=== PATIENT | female | born 1970 | race Caucasian/White ===

== ENCOUNTER 2016-08-15 21:56 | Emergency (ER) | payer OTHER ==
--- NOTE | 2016-08-15 21:58 | EDPHY ---
H & P HPI/ROS: HPI CHIEF COMPLAINT: Palpitations HISTORY OF PRESENT ILLNESS: This patient very pleasant 46-year-old female significant past medical history for hypertension takes hydrochlorothiazide, no other medications no other medical history, denies any history of cardiac disease denies stroke or heart attack she presents emergency room with palpitations she states she has had a remote history when she was much younger palpitations was diagnosed with a sinus arrhythmia however she states she has not had palpitations long time around 2 o'clock today she noticed palpitations she describes as a regular beating along and then kind of a pause and then a very heartbeat. And then goes back to regular rhythm. She has not had any lightheadedness with this she denies chest pain or shortness of breath denies nausea, numbness or tingling or focal weakness anywhere. No headache. Past Medical History: Hypertension Past Surgical History: Jaw surgery Social History: Denies daily use of drugs alcohol tobacco products Family History: No family history of sudden cardiac or significant cardiac arrhythmia ROS REVIEW OF SYSTEMS: A comprehensive 10 point review of systems is otherwise negative aside from elements mentioned in the history of present illness. Exam Constitutional triage nursing summary reviewed, vital signs reviewed, awake/ alert. (Sinus tach, HTN) Eyes normal conjunctivae and sclera, EOMI, PERRLA. HENT normal inspection, atraumatic, moist mucus membranes, no epistaxis, neck supple/ no meningismus, no raccoon eyes. Respiratory clear to auscultation bilaterally, normal breath sounds, no respiratory distress, no wheezing. Cardiovascular rate normal, regular rhythm, no murmur, no edema, distal pulses normal. Gastrointestinal soft, non-tender, no rebound, no guarding, normal bowel sounds, no distension, no pulsatile mass. Genitourinary no CVA tenderness. Musculoskeletal no midline vertebral tenderness, full range of motion, no calf swelling, no tenderness of extremities, no meningismus, good pulses, neurovascularly intact. Skin pink, warm, & dry, no rash, skin atraumatic. Neurologic awake, alert and oriented x 3, AAOx3, moves all 4 extremities equally, motor intact, sensory intact, CN II-XII intact, normal cerebellar, normal vision, normal speech. Psychiatric normal mood/affect. Heme/Lymph/Immune no lymphadenopathy. Differential Diagnosis: Includes but is not limited to in a particular order cardiac arrhythmia, sinus arrhythmia, PVCs, electrolyte disturbance, doubt ACS, doubt pulmonary embolism. Medical Decision Making: Patient tells me that she has had palpitations since 2 o'clock this afternoon patient will be hooked up to a residential monitor patient had an IV established obtain blood work, patient received a fluid bolus, EKG will check a troponin and D-dimer. Patient denies chest pain or shortness of breath. No history of cardiac disease pulmonary embolism or stroke. Only cardiac risk factor is hypertension. Re-evaluation: EKG interpretation by me on record in [employer] system. Impression time of EKG 228, this is sinus tachycardia rate of 103 I do not appreciate acute ischemia. No signs of cardiac arrhythmia on this EKG. Intervals are appropriate. No signs of WPW or Brugada. 2238: Patient resting comfortably without chest pain or shortness of breath. Blood pressure currently 155/82 HR currently: 94 ED x-ray chest two view: Negative for acute cardiopulmonary disease. Image interpreted myself. 2256: Review patient's blood work negative D-dimer, electrolytes appropriate slightly low sodium 3.3. Patient's chest x-ray unremarkable EKG unremarkable. No evidence of arrhythmia on the residential monitor for the hour that she has been here. She has no chest pain or shortness of breath she is not complaining of palpitations this time denies dizziness or lightheadedness. Given that her blood work is unremarkable EKG unremarkable I do recommend that she follows up with Cardiology for palpitations outpatient workup with a Holter monitor. No evidence of ischemia on her EKG. Repeat EKG: Time of EK, this is sinus rhythm rate of 85 again there is no acute ischemic changes seen on this EKG specifically no ST elevation, ST depression, T-wave abnormalities. No signs of cardiac arrhythmia no brugada no WPW unremarkable EKG. 2258: Discussed results with patient 1 of her blood work and EKGs. Everything is reassuring. Blood pressure greatly improved and heart rate improved. Heart rate 85. Blood pressure 150 systolic. Again no chest pain no shortness of breath she understands follow-up with Cardiology outpatient. Obviously return emergency room if there is any worsening symptoms including syncope develops chest pain or shortness of breath. We have not capture any signs of cardiac arrhythmia here on the monitor. Source: Patient - Medical/Surgical History Hx Asthma: Yes Hx Chronic Respiratory Disease: No Hx Diabetes: No Hx Cardiac Disease: No Hx Renal Disease: No Hx Cirrhosis: No Hx Alcoholism: No Hx HIV/AIDS: No Hx Splenectomy or Spleen Trauma: No Other PMH: htn - Social History Smoking Status: Never smoked Constitutional: Initial Vital Signs Temperature (C) 36.7 C 08/15/16 22:06 Heart Rate 112 H 08/15/16 22:06 Respiratory Rate 18 08/15/16 22:06 Blood Pressure 192/114 H 08/15/16 22:06 O2 Sat (%) 94 08/15/16 22:06 O2 Delivery Mode Room Air Allergies/Adverse Reactions: No Known Allergies Allergy (Unverified 08/15/16 22:05) Home Medications: Medication Instructions Recorded Hydrochlorothiazide 12.5 MG (RX) 08/05/13 Medical Decision Making - Data Points Laboratory Results: Laboratory Results 08/15/16 22:25 08/15/16 22:25 08/15/16 08/15/16 08/15/16 22:25 22:25 22:25 WBC RBC Hgb Hct MCV MCH MCHC RDW Plt Count MPV Neut % (Auto) Lymph % (Auto) [place] % (Auto) Eos % (Auto) Baso % (Auto) Nucleat RBC Rel Count Absolute Neuts (auto) Absolute Lymphs (auto) Absolute Monos (auto) Absolute Eos (auto) Absolute Basos (auto) Absolute Nucleated RBC Immature Gran % Immature Gran # PT 13.2 SEC SEC (12.0-15.0) INR 1.03 (0.83-1.16) APTT 28.8 SEC SEC (23.0-38.0) D-Dimer < 0.27 ug/mLFEU ug/mLFEU (0.00-0.50) Sodium 137 mEq/L mEq/L (134-144) Potassium 3.3 mEq/L L mEq/L (3.5-5.2) Chloride 94 mEq/L L mEq/L (97-110) Carbon Dioxide 24 mEq/l mEq/l (22-31) Anion Gap 19 mEq/L H mEq/L (8-16) BUN 7 mg/dL mg/dL (7-23) Creatinine 0.5 mg/dL L mg/dL (0.6-1.0) Estimated GFR > 60 Glucose 97 mg/dL mg/dL (70-100) Calcium 9.8 mg/dL mg/dL (8.5-10.4) Magnesium 2.1 mg/dL mg/dL (1.6-2.3) Total Bilirubin 0.9 mg/dL mg/dL (0.1-1.4) Conjugated Bilirubin 0.3 mg/dL mg/dL (0.0-0.5) Unconjugated Bilirubin 0.6 mg/dL mg/dL (0.0-1.1) AST 23 IU/L IU/L (14-46) ALT 27 IU/L IU/L (9-52) Alkaline Phosphatase 115 IU/L IU/L (38-126) Troponin I Pending NT-Pro-B Natriuret Pep Pending Total Protein 8.5 g/dL H g/dL (6.3-8.2) Albumin 4.4 g/dL g/dL (3.5-5.0) Beta HCG, Qual NEGATIVE 08/15/16 22:25 WBC 15.80 10^3/uL H 10^3/uL (3.80-9.50) RBC 5.27 10^6/uL 10^6/uL (4.18-5.33) Hgb 15.7 g/dL g/dL (12.6-16.3) Hct 43.3 % % (38.0-47.0) MCV 82.2 fL fL (81.5-99.8) MCH 29.8 pg pg (27.9-34.1) MCHC 36.3 g/dL g/dL (32.4-36.7) RDW 12.6 % % (11.5-15.2) Plt Count 417 10^3/uL H 10^3/uL (150-400) MPV 9.6 fL fL (8.7-11.7) Neut % (Auto) 63.9 % % (39.3-74.2) Lymph % (Auto) 28.7 % % (15.0-45.0) [place] % (Auto) 5.9 % % (4.5-13.0) Eos % (Auto) 0.9 % % (0.6-7.6) Baso % (Auto) 0.3 % % (0.3-1.7) Nucleat RBC Rel Count 0.0 % % (0.0-0.2) Absolute Neuts (auto) 10.10 10^3/uL H 10^3/uL (1.70-6.50) Absolute Lymphs (auto) 4.54 10^3/uL H 10^3/uL (1.00-3.00) Absolute Monos (auto) 0.93 10^3/uL H 10^3/uL (0.30-0.80) Absolute Eos (auto) 0.14 10^3/uL 10^3/uL (0.03-0.40) Absolute Basos (auto) 0.04 10^3/uL 10^3/uL (0.02-0.10) Absolute Nucleated RBC 0.00 10^3/uL 10^3/uL (0-0.01) Immature Gran % 0.3 % % (0.0-1.1) Immature Gran # 0.05 10^3/uL 10^3/uL (0.00-0.10) PT INR APTT D-Dimer Sodium Potassium Chloride Carbon Dioxide Anion Gap BUN Creatinine Estimated GFR Glucose Calcium Magnesium Total Bilirubin Conjugated Bilirubin Unconjugated Bilirubin AST ALT Alkaline Phosphatase Troponin I NT-Pro-B Natriuret Pep Total Protein Albumin Beta HCG, Qual Medications Given: Discontinued Medications Sodium Chloride (Ns) 1,000 mls @ 0 mls/hr IV ONCE ONE PRN Reason: Wide Open Stop: 08/15/16 22:04 Last Admin: 08/15/16 22:25 Dose: 1,000 mls Departure - Departure Disposition: Home, Routine, Self-Care Clinical Impression: Heart palpitations Condition: Good Instructions: Palpitations (ED) Additional Instructions: 1. Return emergency room if you have any worsening symptoms questions or concerns. This includes severe palpitations, syncope, chest pain. 2. Please follow up with Cardiology outpatient call their for an appointment. Reason for consultation is palpitations. 3. Your Potassium was slightly low. I recommend eating a few bananas over the next two days. Referrals: NONE *PRIMARY CARE P,. [Primary Care Provider] - As per Instructions Marcie Aguilera MD [Medical Doctor] - As per Instructions
[2016-08-15] MEDS ORDERED: NS 1,000 ML IV ONE (22:03)
[2016-08-15 22:09] VITALS: TEMP 98.1
--- NOTE | 2016-08-15 22:10 | CPEKG ---
Heart Rate: 103 RR Interval: 583 P-R Interval: 152 QRSD Interval: 96 QT Interval: 344 QTC Interval: 451 P [place]: 57 QRS [place]: 37 T Wave [place]: 13 EKG Severity - OTHERWISE NORMAL ECG - EKG Impression: SINUS TACHYCARDIA Electronically Signed By: Thiago Brooks 16-Aug-2016 16:30:29
[2016-08-15 22:32] LABS: % IMMATURE GRANULYOCYTES 0.3 % (0.0-1.1); ABSOLUTE IMMATURE GRANULOCYTES 0.05 10^3/uL (0.00-0.10); ADD DIFF? NO; ADD MORPH? NO; ADD SCAN? NO; ATYPICAL LYMPHOCYTE FLAG 0 (0-99); FRAGMENT RBC FLAG 0 (0-99); HEMATOCRIT 43.3 % (38.0-47.0); HEMOGLOBIN 15.7 g/dL (12.6-16.3); LEFT SHIFT FLG 0 (0-99); LIPEMIA HEMOLYSIS FLAG 90 (0-99); MEAN CELL HEMOGLOBIN 29.8 pg (27.9-34.1); MEAN CELL HEMOGLOBIN CONCENTR. 36.3 g/dL (32.4-36.7); MEAN CELL VOLUME 82.2 fL (81.5-99.8); MEAN PLATELET VOLUME 9.6 fL (8.7-11.7); PLATELET CLUMPS FLAG 0 (0-99); PLATELET COUNT 417 10^3/uL (150-400); RED BLOOD CELL COUNT 5.27 10^6/uL (4.18-5.33); RED CELL DISTRIBUTION WIDTH 12.6 % (11.5-15.2)
[2016-08-15 22:44] LABS: APTT 28.8 SEC (23.0-38.0); INR 1.03 (0.83-1.16); PROTIME(PATIENT) 13.2 SEC (12.0-15.0)
[2016-08-15 22:46] LABS: ALANINE AMINOTRANSFERASE 27 IU/L (9-52); ALBUMIN 4.4 g/dL (3.5-5.0); ALKALINE PHOSPHATASE 115 IU/L (38-126); ANION GAP 19 mEq/L (8-16); ASPARTATE AMINOTRANSFERASE 23 IU/L (14-46); BILIRUBIN,TOTAL 0.9 mg/dL (0.1-1.4); BILIRUBIN-CONJUGATED 0.3 mg/dL (0.0-0.5); BILIRUBIN-UNCONJUGATED 0.6 mg/dL (0.0-1.1); CALCIUM 9.8 mg/dL (8.5-10.4); CARBON DIOXIDE 24 mEq/l (22-31); CHLORIDE 94 mEq/L (97-110); CREATININE 0.5 mg/dL (0.6-1.0); GLOMERULAR FILTRATION RATE > 60; GLUCOSE 97 mg/dL (70-100); MAGNESIUM 2.1 mg/dL (1.6-2.3); POTASSIUM 3.3 mEq/L (3.5-5.2); SODIUM 137 mEq/L (134-144); TOTAL PROTEIN 8.5 g/dL (6.3-8.2)
--- NOTE | 2016-08-15 22:58 | CPEKG ---
Heart Rate: 85 RR Interval: 706 P-R Interval: 160 QRSD Interval: 70 QT Interval: 368 QTC Interval: 438 P Section: 57 QRS Section: 36 T Wave Section: 23 EKG Severity - NORMAL ECG - EKG Impression: SINUS RHYTHM Electronically Signed By: Thiago Brooks 16-Aug-2016 16:30:15
[2016-08-15 22:59] LABS: TROPONIN I < 0.012 ng/mL (0-0.034)
[2016-08-15 23:23] VITALS: BP 129/82; PULSE 90; RESP 16; O2SAT 95
== END 2016-08-15 23:08 | disposition home or self-care (01) ==
LOC: CED 21:56
DX: R00.2 Palpitations (principal); I10 Essential (primary) hypertension; J45.909 Unspecified asthma, uncomplicated
CPT/HCPCS: 71020-PO; 80048-PO; 80076-PO; 83735-PO; 83880-PO; 84484-PO; 84703-PO; 85025-PO; 85378-PO; 85610-PO; 85730-PO